=== PATIENT | female | born 1950 | race Caucasian/White ===

== ENCOUNTER 2016-07-20 16:35 | Outpatient (CLI) | payer MEDICARE | END 2016-07-20 16:36 | disposition home or self-care (01) | DX: J41.0 Simple chronic bronchitis (principal); F17.200 Nicotine dependence, unspecified, uncomplicated ==

== ENCOUNTER 2020-09-24 08:00 | Outpatient (CLI) | payer MEDICARE, OTHER ==
[2020-09-24 18:43] LABS: BASOPHILS % (AUTO) 0.6 %; EOSINOPHILS # (AUTO) 0.3 10^3/uL (0.0-0.7); EOSINOPHILS % (AUTO) 4.4 %; HCT - HEMATOCRIT 40.7 % (37.0-47.0); HGB - HEMOGLOBIN 13.5 g/dL (12.0-16.0); LYMPHOCYTES % (AUTO) 30.5 %; MEAN CORPUSCULAR HEMOGLOBIN 32.6 pg (27.0-31.0); MEAN CORPUSCULAR HGB CONC 33.2 g/dL (32.0-36.0); MEAN CORPUSCULAR VOLUME 98.3 fL (81.0-99.0); MEAN PLATELET VOLUME 11.3 fL (7.9-10.8); MONOCYTES # (AUTO) 0.5 10^3/uL (0.0-1.0); MONOCYTES % (AUTO) 7.7 %; NEUTROPHILS # (AUTO) 3.7 10^3/uL (1.5-6.6); NEUTROPHILS % (AUTO) 56.6 %; PLT - PLATELET COUNT 212 10^3/uL (130-450); RED BLOOD COUNT 4.14 10^6/uL (4.20-5.40); RED CELL DISTRIBUTION WIDTH 12.6 % (12.0-15.0); WHITE BLOOD COUNT 6.5 x10^3/uL (4.8-10.8)
[2020-09-24 18:47] LABS: ALBUMIN 4.1 g/dL (3.2-5.5); ALBUMIN/GLOBULIN RATIO 1.2 (1.0-2.2); ALKALINE PHOSPHATASE 69 IU/L (42-121); ALT ALANINE AMINOTRANSFERASE 30 IU/L (10-60); AST ASPARTATE AMINOTRANSFERASE 25 IU/L (10-42); BUN - BLOOD UREA NITROGEN 10 mg/dL (6-20); CALCIUM 9.1 mg/dL (8.5-10.3); CARBON DIOXIDE - CO2 29 mmol/L (21-32); CHLORIDE 98 mmol/L (101-111); CHOLESTEROL 136 mg/dL; CREATININE 0.7 mg/dL (0.4-1.0); GAMMA GLUTAMYL TRANSPEPTIDASE 23 IU/L (8-38); GFR - MDRD 82 (>89); GLUCOSE 98 mg/dL (70-100); HDL CHOLESTEROL 45 mg/dL; LDL CHOLESTEROL,CALCULATED 55 mg/dL; LDL/HDL RATIO 1.2 (<4.4); MAGNESIUM 2.1 mg/dL (1.7-2.8); POTASSIUM 4.4 mmol/L (3.5-5.0); SODIUM 136 mmol/L (135-145); TOTAL PROTEIN 7.4 g/dL (6.7-8.2); TRIGLYCERIDES 182 mg/dL; VLDL CHOLESTEROL 36 mg/dL
[2020-09-24 18:57] LABS: THYROID STIMULATING HORMONE 2.5 uIU/mL (0.34-5.60)
[2020-09-24 20:03] LABS: PT - PROTHROMBIN TIME 11.4 secs (9.9-12.6)
[2020-09-24 20:49] LABS: ESTIMATED AVERAGE GLUCOSE 114 mg/dL (70-100); HEMOGLOBIN A1c% 5.6 % (4.27-6.07)
== END 2020-09-24 23:59 | disposition home or self-care (01) ==
LOC: LAB.WCP 08:00
PROVIDERS: ATTEND Family Medicine
DX: K70.10 Alcoholic hepatitis without ascites (principal); E78.5 Hyperlipidemia, unspecified; Z79.899 Other long term (current) drug therapy; E03.9 Hypothyroidism, unspecified
CPT/HCPCS: 36415; 80053; 80061; 82607; 82977; 83036; 83721; 83735; 84443; 85025; 85610

== ENCOUNTER 2021-04-16 09:00 | Outpatient (CLI) | payer MEDICARE ==
[2021-04-18 22:03] LABS: FECAL OCCULT BLOOD (FIT) NEGATIVE (NEGATIVE)
== END 2021-04-16 23:59 | disposition home or self-care (01) ==
LOC: LAB.N 09:00
PROVIDERS: ATTEND Nurse Practitioner
DX: Z12.11 Encounter for screening for malignant neoplasm of colon (principal)
CPT/HCPCS: 82274

== ENCOUNTER 2021-04-23 08:00 | Outpatient (CLI) | payer MEDICARE | END 2021-04-23 23:59 | LOC: LAB.N 08:00 | PROVIDERS: ATTEND Family Medicine | DX: R39.9 Unspecified symptoms and signs involving the genitourinary system (principal) | CPT/HCPCS: 87086; 87181 ==

== ENCOUNTER 2021-05-08 12:42 | Outpatient (CLI) | payer MEDICARE ==
--- NOTE | 2021-05-09 08:37 | Mammography Report ---
BILATERAL DIGITAL SCREENING MAMMOGRAM 3D/2D: 05/08/2021 CLINICAL: Routine screening. Comparison is made to exam dated: 11/30/2013 mammogram - [facility]. The tissue of both breasts is heterogeneously dense. This may lower the sensitivity of mammography. No significant masses, calcifications, or other findings are seen in either breast. There has been no significant interval change. IMPRESSION: NEGATIVE There is no mammographic evidence of malignancy. A 1 year screening mammogram is recommended. This exam was interpreted at Station ID: [id number]. NOTE: For mammograms, a report in lay terms will be sent to the patient. Approximately 15% of breast malignancies will not be visualized mammographically. In the management of a palpable breast mass, a negative mammogram must not discourage biopsy of a clinically suspicious lesion. Electronically Signed By: Marichuy miller/clairerad:05/08/2021 15:24:31 ACR BI-RADS Category 1: Negative 3341F PARENCHYMAL PATTERN: (D) - The breast(s) demonstrate(s) heterogeneously dense fibroglandular jaylen cosby. BI-RADS CATEGORY: (1) - 1 RECOMMENDATION: (ANNUAL) - Recommend routine annual screening mammography. [id number] 1 year screening LATERALITY: (B)
== END 2021-05-08 12:43 | disposition home or self-care (01) ==
LOC: DI.N 12:42
PROVIDERS: ATTEND Nurse Practitioner
DX: Z12.31 Encounter for screening mammogram for malignant neoplasm of breast (principal)

== ENCOUNTER 2022-01-19 10:02 | Outpatient (CLI) | payer MEDICARE ==
[2022-01-19 12:21] LABS: BASOPHILS # (AUTO) 0.1 10^3/uL (0.0-0.1); BASOPHILS % (AUTO) 0.7 %; EOSINOPHILS # (AUTO) 0.4 10^3/uL (0.0-0.7); EOSINOPHILS % (AUTO) 5.1 %; HCT - HEMATOCRIT 40.5 % (37.0-47.0); HGB - HEMOGLOBIN 13.6 g/dL (12.0-16.0); LYMPHOCYTES # (AUTO) 1.9 10^3/uL (1.5-3.5); LYMPHOCYTES % (AUTO) 28.1 %; MEAN CORPUSCULAR HEMOGLOBIN 31.8 pg (27.0-31.0); MEAN CORPUSCULAR HGB CONC 33.6 g/dL (32.0-36.0); MEAN CORPUSCULAR VOLUME 94.6 fL (81.0-99.0); MEAN PLATELET VOLUME 10.9 fL (7.9-10.8); MONOCYTES # (AUTO) 0.4 10^3/uL (0.0-1.0); MONOCYTES % (AUTO) 5.9 %; NEUTROPHILS # (AUTO) 4.1 10^3/uL (1.5-6.6); NEUTROPHILS % (AUTO) 60.1 %; PLT - PLATELET COUNT 208 10^3/uL (130-450); RED BLOOD COUNT 4.28 10^6/uL (4.20-5.40); RED CELL DISTRIBUTION WIDTH 12.5 % (12.0-15.0); WHITE BLOOD COUNT 6.8 x10^3/uL (4.8-10.8)
[2022-01-19 12:56] LABS: THYROID STIMULATING HORMONE 2.52 uIU/mL (0.34-5.60)
[2022-01-19 12:57] LABS: ALBUMIN 4.1 g/dL (3.2-5.5); ALBUMIN/GLOBULIN RATIO 1.3 (1.0-2.2); BILIRUBIN,TOTAL 0.8 mg/dL (0.2-1.0); CALCIUM 9.3 mg/dL (8.5-10.3); CREATININE 0.7 mg/dL (0.4-1.0); POTASSIUM 4.6 mmol/L (3.5-5.0); TOTAL PROTEIN 7.2 g/dL (6.7-8.2)
== END 2022-01-19 10:03 | disposition home or self-care (01) ==
LOC: LAB.N 10:02
PROVIDERS: ATTEND Nurse Practitioner
DX: I10 Essential (primary) hypertension (principal); R53.83 Other fatigue; E03.9 Hypothyroidism, unspecified
CPT/HCPCS: 36415; 80053; 83540; 84443; 84466; 84630; 85025

== ENCOUNTER 2022-03-05 14:02 | Outpatient (CLI) | payer MEDICARE ==
--- NOTE | 2022-03-05 18:01 | DEXA Report ---
PROCEDURE: Dexa Spine and/or Hip INDICATIONS: POST MENOPAUSAL TECHNIQUE: Dual energy x-ray absorptiometry (DXA) was performed on a Fuel3[employer] System. Regions measur ed are the AP Spine, femoral neck, and if needed forearm. COMPARISON: None. FINDINGS: Lumbar Spine: Bone Mineral Density 0.869 g/cm/cm,T score -2.6, osteoporosis Left Femoral Neck: Bone Mineral Density 0.840 g/cm/cm, T score -1.3, osteopenia Left Hip: Bone Mineral Density 0.728 g/cm/cm,T score -2.2, moderate osteopenia (T score greater or equal to -1.0: NORMAL) (T score from -1.1 to -2.4: OSTEOPENIA) (T score less than or equal to -2.5 to: OSTEOPOROSIS) Impression: Osteoporosis. Patient is at high risk for fracture. Patients with diagnosis of osteoporosis or osteopenia should have regular bone mineral density assess ment. For those eligible for Medicare, routine testing is allowed once every 2 years. Testing frequ ency can be increased for patients who have rapidly progressing disease or for those who are receivin g medical therapy to restore bone mass. Reviewed by: Neo Anand MD on 03/05/2022 5:59 PM PST Approved by: Neo Anand MD on 03/05/2022 5:59 PM PST Station ID: [id number]
== END 2022-03-05 14:03 | disposition home or self-care (01) ==
LOC: DI 14:02
PROVIDERS: ATTEND Nurse Practitioner
DX: M81.0 Age-related osteoporosis without current pathological fracture (principal); Z78.0 Asymptomatic menopausal state

== ENCOUNTER 2022-07-21 12:31 | Outpatient (CLI) | payer MEDICARE ==
--- NOTE | 2022-07-22 10:38 | Mammography Report ---
BILATERAL DIGITAL SCREENING MAMMOGRAM 3D/2D: 07/21/2022 CLINICAL: Routine screening. Comparison is made to exams dated: 05/08/2021 mammogram and 11/30/2013 mammogram - [facility]. Both breasts are heterogeneously dense, which may obscure small masses (category c / 51-75% glandular tissue). No significant masses, calcifications, or other findings are seen in either breast. There has been no significant interval change. IMPRESSION: NEGATIVE There is no mammographic evidence of malignancy. A 1 year screening mammogram is recommended. Based on the Tyrer Cuzick model (a risk assessment model) the patients lifetime risk is 7.4% and her 10 year risk is 6.1%. According to the ACR, ACS, and NCCN guidelines, an annual breast MRI exam syed g with mammogram is recommended if the patients lifetime risk is 20% or greater. This exam was interpreted at Station ID: [id number]. NOTE: For mammograms, a report in lay terms will be sent to the patient. Approximately 15% of breast malignancies will not be visualized mammographically. In the management of a palpable breast mass, a negative mammogram must not discourage biopsy of a clinically suspicious lesion. Electronically Signed By: Silver casas/mena:07/21/2022 15:33:09 letter sent: No_Letter ACR BI-RADS Category 1: Negative 3341F PARENCHYMAL PATTERN: (D) - The breast(s) demonstrate(s) heterogeneously dense fibroglandular jaylen cosby. BI-RADS CATEGORY: (1) - 1 Mammogram [id number] 1 year screening LATERALITY: (B)
== END 2022-07-21 12:32 | disposition home or self-care (01) ==
LOC: DI.N 12:31
DX: Z12.31 Encounter for screening mammogram for malignant neoplasm of breast (principal)

== ENCOUNTER 2022-10-19 15:12 | Outpatient (CLI) | payer MEDICARE | END 2022-10-19 23:59 | disposition short-term general hospital (02) | LOC: EMS 15:12 | DX: S81.011A Laceration without foreign body, right knee, initial encounter (principal); W01.198A Fall on same level from slipping, tripping and stumbling with subsequent striking against other object, initial encounter; Y93.89 Activity, other specified; Y92.009 Unspecified place in unspecified non-institutional (private) residence as the place of occurrence of the external cause | CPT/HCPCS: A0425; A0429 ==

== ENCOUNTER 2023-04-01 12:50 | Outpatient (CLI) | payer MEDICARE | END 2023-04-01 23:59 | disposition critical access hospital (66) | LOC: EMS 12:50 | DX: R33.9 Retention of urine, unspecified (principal); R19.7 Diarrhea, unspecified; R53.1 Weakness; R03.1 Nonspecific low blood-pressure reading; R14.0 Abdominal distension (gaseous) | CPT/HCPCS: A0425; A0429 ==

== ENCOUNTER 2023-04-01 13:29 | Emergency (ER) | payer MEDICARE ==
[2023-04-01] MEDS ORDERED: SODIUM CHLORIDE 0.9% 1,000 ML IV STA ×5 (13:51→22:48)
--- NOTE | 2023-04-01 13:53 | ED Physician Documentation ---
History of Present Illness - Stated complaint Stated Complaint: LOW BP/DIARRHEA - Chief complaint Chief Complaint: General - History obtained from History obtained from: Patient, EMS - History of Present Illness Pain level max: 0 Pain level now: 0 - Additonal information Additional information: Patient is a 73-year-old female who presents to the emergency department stating that she has had decreased appetite, nausea for the past 2 to 3 days. She reportedly has a history of alcoholism. She has a history of alcoholic hepatitis. She states that she quit smoking and drinking 6 days ago. She states has not had much food intake since that time. She states that she has not urinated in 3 days and does not have the urge to urinate. She states that she has had mild diarrhea as well. No abdominal pain, cramping, headache, vision changes. She states her normal blood pressure is approximately 110 systolic, she went to her PCP today and her systolic blood pressure was 98. Therefore they called the ambulance to bring her here. Patient denies any falls, trauma. She states she quit smoking 6 days ago as well. She was smoking 2 packs/day. She states for her alcohol use it was 3-4 "light beers" per day. Review of Systems Constitutional: denies: Fever, Chills Cardiac: denies: Palpitations Respiratory: denies: Dyspnea, Cough GI: reports: Diarrhea (Mild, few loose stools over the past 2 days.). denies: Abdominal Pain, Vomiting, Hematemesis, Bloody / black stool : denies: Dysuria Skin: denies: Rash Musculoskeletal: denies: Neck pain, Back pain Neurologic: denies: Headache PD PAST MEDICAL HISTORY - Past Medical History Cardiovascular: Hypertension, High cholesterol Respiratory: Asthma Psych: Anxiety - Past Surgical History General: Appendectomy - Present Medications Home Medications: Ambulatory Orders Medication Instructions Recorded Confirmed Aspirin 81 mg PO DAILY 02/06/15 04/01/23 Atenolol 50 mg PO DAILY 02/06/15 04/01/23 Atorvastatin [Lipitor] 40 mg PO DAILY 02/06/15 02/06/15 Levothyroxine [Synthroid] 75 mcg PO DAILY 02/06/15 04/01/23 QUEtiapine [SEROquel] 25 mg PO HS 02/06/15 04/01/23 lisinopriL [Lisinopril] 10 mg PO DAILY 02/06/15 04/01/23 Fluticasone Propionate 1 unit INH DAILY 04/01/23 04/01/23 hydrOXYzine HCL [Hydroxyzine HCl] 10 mg ORAL DAILY 04/01/23 04/01/23 - Allergies Allergies/Adverse Reactions: Allergies Allergy/AdvReac Type Severity Reaction Status Date / Time amoxicillin Allergy Hives Verified 04/01/23 13:41 - Social History Does the pt smoke?: Yes Smoking Status: Current every day smoker Does the pt drink ETOH?: Yes Does the pt have substance abuse?: No PD ED PE NORMAL - Vitals Vital signs reviewed: Yes - General General: Alert and oriented X 3, No acute distress - HEENT HEENT: PERRL, Moist mucous membranes - Neck Neck: Supple, no meningeal sign - Cardiac Cardiac: RRR, Strong equal pulses - Respiratory Respiratory: No respiratory distress, Clear bilaterally - Abdomen Abdomen: Soft, Non tender, Non distended - Back Back: No CVA TTP, No spinal TTP - Derm Derm: Warm and dry - Extremities Extremities: No edema, No calf tenderness / cord - Neuro Neuro: Alert and oriented X 3 - Psych Psych: Normal mood, Normal affect Results - Vitals Vitals: Vital Signs - 24 hr 04/01/23 04/01/23 04/01/23 13:37 15:40 17:00 Temperature 36.3 C L Heart Rate 63 72 67 Respiratory 16 16 16 Rate Blood Pressure 116/71 126/72 122/73 O2 Saturation 97 96 100 04/01/23 04/01/23 19:00 21:00 Temperature Heart Rate 73 76 Respiratory 18 25 H Rate Blood Pressure 124/73 134/72 H O2 Saturation 98 94 Oxygen O2 Source Room air - EKG (time done) 1518 EKG releavant findings:: EKG personally interpreted by author of this note. Relevant findings are: Rate: Rate (enter#) (70) Rhythm: NSR [employer]: Normal Intervals: Normal [place] QRS: Normal Ischemia: Normal ST segments - Labs Labs: Laboratory Tests 04/01/23 04/01/23 04/01/23 14:10 14:10 14:10 WBC 11.2 H RBC 3.25 L Hgb 9.9 L Hct 30.7 L MCV 94.5 MCH 30.5 MCHC 32.2 RDW 12.4 Plt Count 320 MPV 10.4 Neut # (Auto) 8.6 H Lymph # (Auto) 1.1 L [place] # (Auto) 1.3 H Eos # (Auto) 0.1 Baso # (Auto) 0.0 Absolute Nucleated RBC 0.00 Nucleated RBC % 0.0 PT 12.7 H INR 1.2 APTT 27.9 Sodium 125 L Potassium 6.7 H* Chloride 94 L Carbon Dioxide 21 Anion Gap 10.0 BUN 72 H Creatinine 10.1 H* Estimated GFR (MDRD) 4 L Glucose 107 H Calcium 8.7 Phosphorus 4.0 Magnesium 2.5 H Total Bilirubin 1.1 H AST 62 H ALT 64 H Alkaline Phosphatase 359 H Total Protein 7.3 Albumin 2.8 L Globulin 4.5 H Albumin/Globulin Ratio 0.6 L Lipase 68 04/01/23 16:34 WBC RBC Hgb Hct MCV MCH MCHC RDW Plt Count MPV Neut # (Auto) Lymph # (Auto) [place] # (Auto) Eos # (Auto) Baso # (Auto) Absolute Nucleated RBC Nucleated RBC % PT INR APTT Sodium 127 L Potassium 6.2 H* Chloride 97 L Carbon Dioxide 21 Anion Gap 9.0 BUN 71 H Creatinine 9.9 H* Estimated GFR (MDRD) 4 L Glucose 96 Calcium 8.0 L Phosphorus Magnesium Total Bilirubin AST ALT Alkaline Phosphatase Total Protein Albumin Globulin Albumin/Globulin Ratio Lipase - Rads (name of study) CT abdomen pelvis Relevant Findings:: Final report received, See rad report PD Medical Decision Making - ED course Complexity details: reviewed results, re-evaluated patient, considered differential, d/w patient ED course: Patient is a 73-year-old female who presents to the emergency department after not eating or drinking for 3 days and having no urine output. She is in acute renal failure. Her baseline creatinine is around 0.7, she is at 10.1. She is also hyponatremic, down to 125, was given a liter of normal saline and then was kept on normal saline at 300 mL/h. A Lu catheter was placed. There is no urine output. She also has hyperkalemia, 6.7. No EKG changes. Given insulin, glucose. Also given Lokelma. Repeat potassium is down to 6.2. Her creatinine only came down to 9.9. She will need transfer to a facility with nephrology. We started calling to attempt transfer at approximately 5:15 PM. At the time of shift change there has been no callback from any facility. We will continue to hydrate the patient. A repeat BMP was ordered at shift change. Will be followed up by Dr. Arellano. Patient is signed out to Dr. Arellano for further care. This document was made in part using voice recognition software. While efforts are made to proofread this document, sound alike and grammatical errors may occur. PROCEDURE: Abdomen/Pelvis WO INDICATIONS: acute renal failure TECHNIQUE: A CT scan of the abdomen and pelvis was performed without the use of intravenous contrast. Images were recorded and evaluated at appropriate window settings. Reformats: coronal and sagittal. For radiation dose reduction, the following was used: automated exposure control, adjustment of mA and/or kV according to patient size. COMPARISON: None. FINDINGS: Image quality: Excellent. Lung bases and heart: Aneurysmal dilatation of the ascending aorta, measuring at least 4.8 cm in diameter.. Liver: No contour-deforming mass. Gallbladder and biliary tree: No radiopaque stones or wall thickening. No biliary dilation. Spleen: No splenomegaly. Pancreas: No pancreatic ductal dilation. Adrenals: No adrenal nodule. Kidneys and ureters: No hydronephrosis. No renal cystic lesion which requires follow up. No solid mass. Bowel and peritoneum: No bowel distension. No pathologic free fluid. Lymph nodes: No central or retroperitoneal adenopathy. Vessels: No infrarenal aortic aneurysm. PELVIS Reproductive organs: Uterus is present. There is a low-density structure present immediately subjacent to the right side of the uterus measuring 4.4 x 3.8 cm. This may potentially represent a cystic adnexal lesion or nonopacified bowel. Reference image 116/2. The uterus is incidentally noted to be somewhat fibroid in appearance. Bladder: No wall thickness, accounting for underdistention. A Lu catheter decompresses the bladder. Pelvic lymph nodes: No pelvic adenopathy by size criteria. Bones: No aggressive osseous abnormality. Other: No significant ventral or inguinal hernia. IMPRESSION: 1. Normal-sized kidneys with no evidence of hydronephrosis. 2. Aneurysmal dilatation of the ascending aorta, measuring at least 4.8 cm. 3. Question right adnexal cystic lesion, measuring 4.4 cm in diameter. Comment: Recommend nonemergent chest CT, possibly without contrast, to evaluate the size of the ascending aorta. Recommend nonemergent pelvic ultrasound for possible 4.4 cm right adnexal cystic lesion. Departure - Departure Clinical Impression: Uremia, Hyponatremia, Hyperkalemia, Elevated LFTs, Dehydration Acute renal failure Qualifiers: Acute renal failure type: unspecified Qualified Code(s): N17.9 - Acute kidney failure, unspecified Condition: Stable Forms: PCP List
[2023-04-01 14:21] LABS: BASOPHILS % (AUTO) 0.4 %; EOSINOPHILS # (AUTO) 0.1 10^3/uL (0.0-0.7); EOSINOPHILS % (AUTO) 0.8 %; HCT - HEMATOCRIT 30.7 % (37.0-47.0); HGB - HEMOGLOBIN 9.9 g/dL (12.0-16.0); LYMPHOCYTES # (AUTO) 1.1 10^3/uL (1.5-3.5); LYMPHOCYTES % (AUTO) 10.2 %; MEAN CORPUSCULAR HEMOGLOBIN 30.5 pg (27.0-31.0); MEAN CORPUSCULAR HGB CONC 32.2 g/dL (32.0-36.0); MEAN CORPUSCULAR VOLUME 94.5 fL (81.0-99.0); MEAN PLATELET VOLUME 10.4 fL (7.9-10.8); MONOCYTES # (AUTO) 1.3 10^3/uL (0.0-1.0); MONOCYTES % (AUTO) 11.5 %; NEUTROPHILS # (AUTO) 8.6 10^3/uL (1.5-6.6); NEUTROPHILS % (AUTO) 76.7 %; PLT - PLATELET COUNT 320 10^3/uL (130-450); RED BLOOD COUNT 3.25 10^6/uL (4.20-5.40); RED CELL DISTRIBUTION WIDTH 12.4 % (12.0-15.0); WHITE BLOOD COUNT 11.2 x10^3/uL (4.8-10.8)
[2023-04-01 14:28] LABS: PARTIAL THROMBOPLASTIN TIME 27.9 secs (24.9-33.3)
[2023-04-01 14:29] LABS: MAGNESIUM 2.5 mg/dL (1.7-2.3)
[2023-04-01 14:31] LABS: ALBUMIN 2.8 g/dL (3.2-5.5); ALBUMIN/GLOBULIN RATIO 0.6 (1.0-2.2); BILIRUBIN,TOTAL 1.1 mg/dL (0.2-1.0); CALCIUM 8.7 mg/dL (8.5-10.3); CREATININE 10.1 mg/dL (0.6-1.3); POTASSIUM 6.7 mmol/L (3.5-4.5); TOTAL PROTEIN 7.3 g/dL (6.4-8.9)
[2023-04-01 14:33] LABS: INR 1.2 (0.8-1.2); PT - PROTHROMBIN TIME 12.7 secs (9.9-12.6)
[2023-04-01] MEDS ORDERED: SODIUM ZIRCONIUM CYCLOSILICATE 5 GM PACKET PO STA (14:40)
[2023-04-01] MEDS ORDERED: DEXTROSE 25% ABBOJECT 2.5 GM/10 ML SYRINGE IVP STA (14:41)
[2023-04-01] MEDS ORDERED: INSULIN REGULAR HUMAN 300 UNIT/3 ML VIAL SUBQ STA (14:41)
[2023-04-01 16:59] LABS: CREATININE 9.9 mg/dL (0.6-1.3); POTASSIUM 6.2 mmol/L (3.5-4.5)
--- NOTE | 2023-04-01 17:08 | CT Report ---
PROCEDURE: Abdomen/Pelvis WO INDICATIONS: acute renal failure TECHNIQUE: A CT scan of the abdomen and pelvis was performed without the use of intravenous contrast. Images we re recorded and evaluated at appropriate window settings. Reformats: coronal and sagittal. For radiat ion dose reduction, the following was used: automated exposure control, adjustment of mA and/or kV ac cording to patient size. COMPARISON: None. FINDINGS: Image quality: Excellent. Lung bases and heart: Aneurysmal dilatation of the ascending aorta, measuring at least 4.8 cm in diam eter.. Liver: No contour-deforming mass. Gallbladder and biliary tree: No radiopaque stones or wall thickening. No biliary dilation. Spleen: No splenomegaly. Pancreas: No pancreatic ductal dilation. Adrenals: No adrenal nodule. Kidneys and ureters: No hydronephrosis. No renal cystic lesion which requires follow up. No solid mas s. Bowel and peritoneum: No bowel distension. No pathologic free fluid. Lymph nodes: No central or retroperitoneal adenopathy. Vessels: No infrarenal aortic aneurysm. PELVIS Reproductive organs: Uterus is present. There is a low-density structure present immediately subjacen t to the right side of the uterus measuring 4.4 x 3.8 cm. This may potentially represent a cystic adn exal lesion or nonopacified bowel. Reference image 116/2. The uterus is incidentally noted to be some what fibroid in appearance. Bladder: No wall thickness, accounting for underdistention. A Lu catheter decompresses the bladder . Pelvic lymph nodes: No pelvic adenopathy by size criteria. Bones: No aggressive osseous abnormality. Other: No significant ventral or inguinal hernia. IMPRESSION: 1. Normal-sized kidneys with no evidence of hydronephrosis. 2. Aneurysmal dilatation of the ascending aorta, measuring at least 4.8 cm. 3. Question right adnexal cystic lesion, measuring 4.4 cm in diameter. Comment: Recommend nonemergent chest CT, possibly without contrast, to evaluate the size of the ascen ding aorta. Recommend nonemergent pelvic ultrasound for possible 4.4 cm right adnexal cystic lesion. Reviewed by: Bry Guadalupe MD on 04/01/2023 5:07 PM PST Approved by: Bry Guadalupe MD on 04/01/2023 5:07 PM PST Station ID: [id number]
[2023-04-01 22:00] LABS: CALCIUM 7.8 mg/dL (8.5-10.3)
[2023-04-01] MEDS ORDERED: DEXTROSE 50% ABBOJECT 25 GM/50 ML SYRINGE IVP STA (22:07)
[2023-04-01] MEDS ORDERED: CALCIUM GLUCONATE IN NS 0.9% 2,000 MG/100 ML BAG IV STA (22:08)
[2023-04-01] MEDS ORDERED: INSULIN REGULAR HUMAN 300 UNIT/3 ML VIAL IVP STA (22:08)
--- NOTE | 2023-04-01 23:48 | ED Physician Documentation ---
ED Addendum - Addendum Addendum: 04/01/23 23:48 [facility] and [facility] have the patient on the waitlist and may have a bed tomorrow. Plan to endorse to incoming daytime ED MD at 7am shift change. 04/02/23 00:57 d/w [facility] hospitalist Dr. Aly who accepts in transfer. no beds available yet so we should call back after 5am labs are done since the potassium level will determine whether she goes to tele (<6) vs ICU (>6). 04/02/23 04:36 Update sent to [facility], potassium still 6.0. Another round of insulin/dextrose has been ordered. 04/02/23 06:54 Plan to endorse patient to incoming daytime ED MD at 7am shift change hopefully pending transfer to [facility].
[2023-04-01] MEDS ORDERED: ACETAMINOPHEN 500 MG TABLET PO PRN (23:51)
[2023-04-01] MEDS ORDERED: ONDANSETRON 4 MG/2 ML VIAL IVP PRN (23:51)
[2023-04-02] MEDS ORDERED: SODIUM ZIRCONIUM CYCLOSILICATE 5 GM PACKET PO STA ×2 (00:42→09:58)
[2023-04-02 04:59] LABS: BASOPHILS % (AUTO) 0.3 %; EOSINOPHILS # (AUTO) 0.3 10^3/uL (0.0-0.7); EOSINOPHILS % (AUTO) 2.4 %; HCT - HEMATOCRIT 28.6 % (37.0-47.0); HGB - HEMOGLOBIN 9.3 g/dL (12.0-16.0); LYMPHOCYTES # (AUTO) 1.1 10^3/uL (1.5-3.5); LYMPHOCYTES % (AUTO) 9.9 %; MEAN CORPUSCULAR HEMOGLOBIN 30.7 pg (27.0-31.0); MEAN CORPUSCULAR HGB CONC 32.5 g/dL (32.0-36.0); MEAN CORPUSCULAR VOLUME 94.4 fL (81.0-99.0); MONOCYTES # (AUTO) 1.2 10^3/uL (0.0-1.0); MONOCYTES % (AUTO) 10.9 %; NEUTROPHILS # (AUTO) 8.3 10^3/uL (1.5-6.6); NEUTROPHILS % (AUTO) 75.9 %; PLT - PLATELET COUNT 310 10^3/uL (130-450); RED BLOOD COUNT 3.03 10^6/uL (4.20-5.40); RED CELL DISTRIBUTION WIDTH 12.8 % (12.0-15.0)
[2023-04-02 05:05] LABS: CALCIUM 8.3 mg/dL (8.5-10.3); CREATININE 10.2 mg/dL (0.6-1.3)
[2023-04-02] MEDS ORDERED: DEXTROSE 50% ABBOJECT 25 GM/50 ML SYRINGE IVP STA (05:09)
[2023-04-02] MEDS ORDERED: INSULIN REGULAR HUMAN 300 UNIT/3 ML VIAL IVP STA (05:09)
[2023-04-02] MEDS ORDERED: PANTOPRAZOLE 40 MG TABLET PO SCH (07:00)
--- NOTE | 2023-04-02 08:46 | ED Physician Documentation ---
ED Addendum - Addendum Addendum: 04/02/23 Patient received in signout at shift change. She is awaiting transfer to [facility] with nephrology and dialysis capabilities. Patient was found yesterday to be in acute renal failure with hyperkalemia and an uric. She continues to have little to no urine output, no improvement in her kidney function and continues to have hyperkalemia although potassium has decreased from 6.7 yesterday to 6.0 this morning. She did receive insulin and dextrose to after morning labs. She was also found to be positive for COVID.She has been accepted to her [facility] but they do not have any available beds and they are unsure when an available bed will be open for her. As such I have requested for the [employer] to reach out to other facilities still As patient is in high need for transfer. This morning patient is resting, feels tired. Little appetite. Aware that we are still working on transfer. [id number] - Discussed with [facility] hospitalist who accepts the patient in transfer but would like us to speak to nephrology first to ensure that they are able to accommodate this patient should she need dialysis.She is requesting a chest x-ray to assess for volume status Chest XR IMPRESSION: Diffuse prominent pulmonary markings. This could be due to infectious/inflammatory etiology or pulmonary vasculature engorgement. Background interstitial lung disease could have a similar appearance. 04/02/23 09:14 Per Transfer center, nephrology is comfortable with excepting the patient without needing to speak with us directly. [facility] will reach out once a bed is available. 04/02/23 10:02 I spoke with pharmacist and we no longer carry Kayexalate as we have transition to Lokelma. I will order an additional dose of Lokelma right now. I will also trial patient on a bicarb drip given worsening acidosis seen on her BMP this morning. Bed has been made available at [facility]. Results - Vitals Vitals: Vital Signs - 24 hr 04/01/23 04/01/23 04/01/23 13:37 15:40 17:00 Temperature 36.3 C L Heart Rate 63 72 67 Respiratory 16 16 16 Rate Blood Pressure 116/71 126/72 122/73 O2 Saturation 97 96 100 04/01/23 04/01/23 04/01/23 19:00 21:00 23:00 Temperature Heart Rate 73 76 80 Respiratory 18 25 H 33 H Rate Blood Pressure 124/73 134/72 H 118/56 L O2 Saturation 98 94 94 04/02/23 04/02/23 04/02/23 01:00 03:00 05:00 Temperature Heart Rate 86 76 76 Respiratory 18 18 28 H Rate Blood Pressure 123/77 100/47 L 106/51 L O2 Saturation 100 92 94 04/02/23 04/02/23 04/02/23 06:52 07:12 09:00 Temperature 36 C L Heart Rate 67 75 Respiratory 15 16 Rate Blood Pressure 91/50 L 95/48 L 108/52 L O2 Saturation 94 93 Oxygen O2 Source Room air - EKG (time done) 09 EKG releavant findings:: EKG personally interpreted by author of this note. Relevant findings are: Rate 71, normal sinus rhythm, no STEMI, QTc 408, no change in T waves when compared with previous. - Labs Labs: Laboratory Tests 04/01/23 04/01/23 04/01/23 14:10 14:10 14:10 WBC 11.2 H RBC 3.25 L Hgb 9.9 L Hct 30.7 L MCV 94.5 MCH 30.5 MCHC 32.2 RDW 12.4 Plt Count 320 MPV 10.4 Neut # (Auto) 8.6 H Lymph # (Auto) 1.1 L [place] # (Auto) 1.3 H Eos # (Auto) 0.1 Baso # (Auto) 0.0 Absolute Nucleated RBC 0.00 Nucleated RBC % 0.0 PT 12.7 H INR 1.2 APTT 27.9 Sodium 125 L Potassium 6.7 H* Chloride 94 L Carbon Dioxide 21 Anion Gap 10.0 BUN 72 H Creatinine 10.1 H* Estimated GFR (MDRD) 4 L Glucose 107 H POC Whole Bld Glucose Calcium 8.7 Phosphorus 4.0 Magnesium 2.5 H Total Bilirubin 1.1 H AST 62 H ALT 64 H Alkaline Phosphatase 359 H Total Protein 7.3 Albumin 2.8 L Globulin 4.5 H Albumin/Globulin Ratio 0.6 L Lipase 68 SARS-CoV-2 (PCR) 04/01/23 04/01/23 04/01/23 16:34 21:20 23:30 WBC RBC Hgb Hct MCV MCH MCHC RDW Plt Count MPV Neut # (Auto) Lymph # (Auto) [place] # (Auto) Eos # (Auto) Baso # (Auto) Absolute Nucleated RBC Nucleated RBC % PT INR APTT Sodium 127 L 128 L Potassium 6.2 H* 6.0 H* Chloride 97 L 100 L Carbon Dioxide 21 18 L Anion Gap 9.0 10.0 BUN 71 H 70 H Creatinine 9.9 H* 10.0 H* Estimated GFR (MDRD) 4 L 4 L Glucose 96 70 L POC Whole Bld Glucose Calcium 8.0 L 7.8 L Phosphorus Magnesium Total Bilirubin AST ALT Alkaline Phosphatase Total Protein Albumin Globulin Albumin/Globulin Ratio Lipase SARS-CoV-2 (PCR) DETECTED A 04/02/23 04/02/23 04/02/23 04:46 04:46 09:04 WBC 11.0 H RBC 3.03 L Hgb 9.3 L Hct 28.6 L MCV 94.4 MCH 30.7 MCHC 32.5 RDW 12.8 Plt Count 310 MPV 10.0 Neut # (Auto) 8.3 H Lymph # (Auto) 1.1 L [place] # (Auto) 1.2 H Eos # (Auto) 0.3 Baso # (Auto) 0.0 Absolute Nucleated RBC 0.00 Nucleated RBC % 0.0 PT INR APTT Sodium 128 L Potassium 6.0 H* Chloride 100 L Carbon Dioxide 15 L Anion Gap 13.0 BUN 72 H Creatinine 10.2 H* Estimated GFR (MDRD) 4 L Glucose 69 L POC Whole Bld Glucose 75 Calcium 8.3 L Phosphorus Magnesium Total Bilirubin AST ALT Alkaline Phosphatase Total Protein Albumin Globulin Albumin/Globulin Ratio Lipase SARS-CoV-2 (PCR) 04/02/23 09:22 WBC RBC Hgb Hct MCV MCH MCHC RDW Plt Count MPV Neut # (Auto) Lymph # (Auto) [place] # (Auto) Eos # (Auto) Baso # (Auto) Absolute Nucleated RBC Nucleated RBC % PT INR APTT Sodium 128 L Potassium 6.1 H* Chloride 100 L Carbon Dioxide 16 L Anion Gap 12.0 BUN 74 H Creatinine 10.3 H* Estimated GFR (MDRD) 4 L Glucose 76 POC Whole Bld Glucose Calcium 8.3 L Phosphorus Magnesium Total Bilirubin AST ALT Alkaline Phosphatase Total Protein Albumin Globulin Albumin/Globulin Ratio Lipase SARS-CoV-2 (PCR) Departure - Departure Disposition: 02 Transfer Acute Care Hosp Clinical Impression: Uremia, Hyponatremia, Hyperkalemia, Elevated LFTs, Dehydration, Anuria, COVID- 19 Acute renal failure Qualifiers: Acute renal failure type: unspecified Qualified Code(s): N17.9 - Acute kidney failure, unspecified Condition: Fair Forms: PCP List Discharge Date/Time: 04/02/23 11:57
--- NOTE | 2023-04-02 08:58 | XRAY Report ---
PROCEDURE: Chest 1V INDICATIONS: COVID TECHNIQUE: One view of the chest was acquired. COMPARISON: CXR/rib radiographs 10/24/2014. FINDINGS: Surgical changes and devices: None. Lungs and pleura: No pleural effusions or pneumothorax. No consolidation identified. Prominent pulmo nary markings. Mediastinum: Mediastinal contours appear unchanged. Heart size is normal. Bones and chest wall: No suspicious bony lesions. Overlying soft tissues appear unremarkable. IMPRESSION: Diffuse prominent pulmonary markings. This could be due to infectious/inflammatory etiology or pulmonary vasculature engorgement. Backgroun d interstitial lung disease could have a similar appearance. Reviewed by: Manuel Larson MD on 04/02/2023 8:57 AM [facility] Approved by: Manuel Larson MD on 04/02/2023 8:57 AM PST Station ID: [id number]
[2023-04-02] MEDS ORDERED: ENOXAPARIN 40 MG/0.4 ML SYRINGE SUBQ SCH (09:00)
[2023-04-02 09:45] LABS: CALCIUM 8.3 mg/dL (8.5-10.3); CREATININE 10.3 mg/dL (0.6-1.3); POTASSIUM 6.1 mmol/L (3.5-4.5)
[2023-04-02] MEDS ORDERED: CALCIUM GLUC 1,000MG/50ML-NACL 1,000 MG/50 ML BAG IV STA (10:14)
[2023-04-02] MEDS ORDERED: SODIUM BICARBONATE 150 MEQ in DEXTROSE 5% 1,000 ML IV ONE (11:00)
[2023-04-02 11:48] VITALS: BP 109/54; O2SAT 93
== END 2023-04-02 11:57 | disposition short-term general hospital (02) ==
LOC: EDUNIT# → EDSEX → ED 13:29
DX: N17.9 Acute kidney failure, unspecified (principal); E86.0 Dehydration; E87.1 Hypo-osmolality and hyponatremia; E87.5 Hyperkalemia; R74.8 Abnormal levels of other serum enzymes; U07.1 COVID-19; Z87.891 Personal history of nicotine dependence; Z75.1 Person awaiting admission to adequate facility elsewhere
CPT/HCPCS: 36415; 51702; 71045; 74176; 80048; 80053; 83690; 83735; 84100; 85025; 85610; 85730; 87635; 93005; 96361; 96365; 96366; 96368; 96372; 96375; 96376; 99285; A9270; J1650; J1815

== ENCOUNTER 2023-07-20 18:12 | Outpatient (CLI) | payer MEDICARE | END 2023-07-20 18:13 | disposition EMS.NT | LOC: EMS 18:12 | DX: I10 Essential (primary) hypertension (principal); R51.9 Headache, unspecified ==

== ENCOUNTER 2023-07-21 18:39 | Outpatient (CLI) | payer MEDICARE | END 2023-07-21 23:59 | disposition short-term general hospital (02) | LOC: EMS 18:39 | DX: M54.2 Cervicalgia (principal); R51.9 Headache, unspecified; R11.0 Nausea; R42 Dizziness and giddiness; R45.89 Other symptoms and signs involving emotional state | CPT/HCPCS: A0425; A0427; A0888 ==

== ENCOUNTER 2023-07-24 17:20 | Outpatient (CLI) | payer MEDICARE | END 2023-07-24 23:59 | disposition short-term general hospital (02) | LOC: EMS 17:20 | DX: I10 Essential (primary) hypertension (principal); Z99.2 Dependence on renal dialysis | CPT/HCPCS: A0425; A0429; A0888 ==

== ENCOUNTER 2023-07-25 08:38 | Outpatient (CLI) | payer MEDICARE | END 2023-07-25 23:59 | disposition left against medical advice (07) | LOC: EMS 08:38 | DX: F41.9 Anxiety disorder, unspecified (principal); I10 Essential (primary) hypertension ==

== ENCOUNTER 2023-08-01 11:40 | Outpatient (CLI) | payer MEDICARE | END 2023-08-01 23:59 | disposition EMS.NT | LOC: EMS 11:40 | DX: M54.50 Low back pain, unspecified (principal) ==

== ENCOUNTER 2023-08-01 16:32 | Outpatient (CLI) | payer MEDICARE | END 2023-08-01 16:33 | disposition short-term general hospital (02) | LOC: EMS 16:32 | DX: M54.50 Low back pain, unspecified (principal); Z74.09 Other reduced mobility; Z99.2 Dependence on renal dialysis | CPT/HCPCS: A0425; A0427; A0888 ==

== ENCOUNTER 2023-08-31 18:51 | Outpatient (CLI) | payer MEDICARE | END 2023-08-31 23:59 | disposition short-term general hospital (02) | LOC: EMS 18:51 | DX: I10 Essential (primary) hypertension (principal) | CPT/HCPCS: A0425; A0429; A0888 ==